=== PATIENT | male | born 1940 | race African-American/Black ===

== ENCOUNTER 2021-08-16 04:49 | Emergency (ER) | payer MEDICARE, SELFPAY ==
--- NOTE | ~2021-08-16 | XR_ITS ---
EXAMINATION: XR shoulder LT min 2V DATE: 08/16/2021 06:15 INDICATION: Left shoulder pain post fall TECHNIQUE: AP, Gras[place] and transscapular Y views of the left shoulder were obtained. COMPARISON: None FINDINGS: Normal alignment. No fracture. Mild glenohumeral osteoarthritis with marginal osteophytes along the inferior glenoid. There is also mild acromioclavicular osteoarthritis. Moderate-sized subacromial spu rs. Soft tissues are unremarkable. 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 No acute osseous abnormality. Reviewed, dictated and finalized at location A. 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 No acute osseous abnormality .
[2021-08-16 04:57] VITALS: BP 136/83; PULSE 72; RESP 14; TEMP 36; O2SAT 100
[2021-08-16 06:22] VITALS: BP 136/81; PULSE 68; RESP 18; O2SAT 99
--- NOTE | 2021-08-16 06:40 | ED.GENADULT ---
HPI - General Adult General Chief complaint: Fall Stated complaint: fall Time Seen by Provider: 08/16/21 05:02 History of Present Illness HPI narrative: Patient is an 80-year-old male who presents ER status post fall. Reports he was [facility] when he fell to the ground. He reports he has pain in his left shoulder. He is able to perform range of motion. He has no numbness or tingling. Denies striking his head or losing consciousness. alf wanted to have him evaluated. Patient is oriented x3 however occasionally he thinks he is in [place] and not [place]. Patient reports chronic edema to his upper extremities. Related Data Home Medications Medication Instructions Recorded Confirmed albuterol sulfate 08/16/21 allopurinol 300 mg PO DAILY 08/16/21 apixaban 2.5 mg PO BID 08/16/21 atorvastatin 20 mg PO HS 08/16/21 bisacodyl 10 mg RECTAL DAILY PRN 08/16/21 carvedilol 6.25 mg PO BID 08/16/21 empagliflozin 10 mg PO DAILY 08/16/21 furosemide [Lasix] 40 mg PO BID PRN 08/16/21 hydroxyzine HCl 25 mg PO BID PRN 08/16/21 magnesium citrate [Citroma] 150 ml PO DAILY PRN 08/16/21 magnesium hydroxide [Milk of 400 mg PO DAILY PRN 08/16/21 Magnesia] omeprazole 20 mg PO DAILY 08/16/21 pantoprazole 40 mg PO QAM 08/16/21 sacubitril-valsartan 1 tablet PO BID 08/16/21 sodium phosphates [Fleet Enema] 118 ml RECTAL ONCE 08/16/21 spironolactone 25 mg PO DAILY 08/16/21 sucralfate g 08/16/21 Allergies Allergy/AdvReac Type Severity Reaction Status Date / Time No Known Allergies Allergy Verified 08/16/21 05:10 Review of Systems Review of Systems: All systems reviewed & are unremarkable except as noted in HPI and below Constitutional: Constitutional: Denies chills, Denies fever(s) and Denies weakness ENT: Denies nasal congestion and Denies sore throat Cardiovascular: Cardiovascular: Denies chest pain, Denies rapid heart rate and Denies radiating jaw, neck or arm pain Respiratory: Respiratory: Denies cough and Denies dyspnea Musculoskeletal: Musculoskeletal: Reports arthralgias and Denies joint swelling Neurologic: Denies syncope, Denies headache(s), Denies focal weakness and Denies numbness PMFSH Past Medical History Medical History (Updated 08/16/21 @ 06:50 by Theodore Lozano MD) Anxiety Chronic kidney disease Coronary artery disease GERD (gastroesophageal reflux disease) Gout Hypercholesterolemia Hypertension Prostate cancer Pulmonary embolism Surgical History Surgical History (Updated 08/16/21 @ 06:46 by Theodore Lozano MD) H/O shoulder surgery Right Social History Social History (Updated 08/16/21 @ 06:46 by Theodore Lozano MD) Tobacco type: cigars Exam Narrative: GENERAL: Well-appearing, well-nourished, and in no acute distress. HEAD: Normocephalic, atraumatic. EYES: PERRL and EOMI. CHEST: Clear to auscultation. No respiratory distress. HEART: Regular rate and rhythm. Normal peripheral pulses. ABDOMEN: Soft, nontender, nondistended, normal active bowel sounds. EXTREMITIES: Normal range of motion. 2+ edema in BUE, chronic changes to BLE. Mild tenderness anterior aspect LUE at shoulder. SKIN: Warm, dry, no rash. NEURO: Alert and oriented x3. PSYCH: Normal mood and affect. Course Course Emergency Course: Patient informed of results. Discharge back to [facility]. Vital Signs Vital signs: Vital Signs Temperature 96.8 F L 08/16/21 04:57 Pulse Rate 72 08/16/21 04:57 Respiratory Rate 14 08/16/21 04:57 Blood Pressure 136/83 08/16/21 04:57 Pulse Oximetry 100 08/16/21 04:57 Temperature 96.8 F L 08/16/21 04:57 Pulse Rate 68 08/16/21 06:22 Respiratory Rate 18 08/16/21 06:22 Blood Pressure 136/81 08/16/21 06:22 Pulse Oximetry 99 08/16/21 06:22 Medical Decision Making Vital Signs Vital Signs: Vital Signs Temperature 96.8 F L 08/16/21 04:57 Pulse Rate 72 08/16/21 04:57 Respiratory Rate 14
--- NOTE | 2021-08-16 06:59 | PC.NURSE ---
Pt ready for discharge. Attempted to call [facility] to see if they provide transportation for residents. No answer at this time.
--- NOTE | 2021-08-16 07:03 | PC.NURSE ---
Attempted to call pt to ask about transporting pt. No answer at this time.
--- NOTE | 2021-08-16 07:16 | PC.NURSE ---
made contact with [facility] to transfer pt to [facility] . [place] [phone]
--- NOTE | 2021-08-16 07:43 | PC.NURSE ---
luis has arrived. crew is aware that pt is going to [facility] in [place]
[2021-08-16 07:55] VITALS: BP 139/91; PULSE 69; RESP 18; O2SAT 100
== END 2021-08-16 07:56 ==
PROVIDERS: Emergency Provider Emergency Medicine
DX: M25.512 Pain in left shoulder (principal); I12.9 Hypertensive chronic kidney disease with stage 1 through stage 4 chronic kidney disease, or unspecified chronic kidney disease; N18.9 Chronic kidney disease, unspecified; I25.10 Atherosclerotic heart disease of native coronary artery without angina pectoris; K21.9 Gastro-esophageal reflux disease without esophagitis; M10.9 Gout, unspecified; E78.00 Pure hypercholesterolemia, unspecified; Z86.711 Personal history of pulmonary embolism; Z85.46 Personal history of malignant neoplasm of prostate; Z79.01 Long term (current) use of anticoagulants; F17.290 Nicotine dependence, other tobacco product, uncomplicated; M19.012 Primary osteoarthritis, left shoulder; W18.30XA Fall on same level, unspecified, initial encounter
CPT/HCPCS: 73030; 99283